=== PATIENT | male | born 1975 | race Caucasian/White ===

== ENCOUNTER 2024-05-25 15:12 | Emergency (ER) | payer BC, SELFPAY ==
[2024-05-25 15:12] VITALS: BP 185/114; PULSE 107; RESP 18; TEMP 36.7; O2SAT 97; BMI 27.1
--- NOTE | 2024-05-25 15:13 | CT_ITS ---
PROCEDURE INFORMATION: Exam: CTA Head With Contrast, Arteriography Exam date and time: 05/25/2024 4:46 PM Age: 48 years old Clinical indication: Injury or trauma; Additional info: Trauma, critical injury suspected TECHNIQUE: Imaging protocol: Computed tomographic angiography of the head with contrast. Exam focused on the arteries. 3D rendering (Not supervised by radiologist): MIP and/or 3D reconstructed images were created by the technologist. Radiation optimization: All CT scans at this facility use at least one of these dose optimization techniques: automated exposure control; mA and/or kV adjustment per patient size (includes targeted exams where dose is matched to clinical indication); or iterative reconstruction. Contrast material: ISO 370; Contrast volume: 80 ml; Contrast route: INTRAVENOUS (IV); COMPARISON: CT HEAD/BRAIN WO CON 05/25/2024 4:07 PM FINDINGS: ANTERIOR CIRCULATION: Right internal carotid artery: Intracranial segment is patent with no significant stenosis. No aneurysm. Right middle cerebral artery: No occlusion or significant stenosis. No aneurysm. Right anterior cerebral artery: No occlusion or significant stenosis. No aneurysm. Left internal carotid artery: Intracranial segment is patent with no significant stenosis. No aneurysm. Left middle cerebral artery: No occlusion or significant stenosis. No aneurysm. Left anterior cerebral artery: No occlusion or significant stenosis. No aneurysm. POSTERIOR CIRCULATION: Right vertebral artery: No occlusion or significant stenosis. No aneurysm. Left vertebral artery: No occlusion or significant stenosis. No aneurysm. Basilar artery: No occlusion or significant stenosis. No aneurysm. Right posterior cerebral artery: No occlusion or significant stenosis. No aneurysm. Left posterior cerebral artery: No occlusion or significant stenosis. No aneurysm. Brain: No definite mass, mass effect, or midline shift. Cerebral ventricles: No ventriculomegaly. Bones/joints: Unremarkable. No acute fracture. Soft tissues: Unremarkable. IMPRESSION: No large vessel stenosis or occlusion.
--- NOTE | 2024-05-25 15:13 | CT_ITS ---
PROCEDURE INFORMATION: Exam: CT Thoracic Spine Without Contrast Exam date and time: 05/25/2024 4:41 PM Age: 48 years old Clinical indication: Injury or trauma; Other: Trampled by cattle; Work related; Blunt trauma (contusions or hematomas); Additional info: Trauma, critical injury suspected TECHNIQUE: Imaging protocol: Computed tomography of the thoracic spine without contrast. Radiation optimization: All CT scans at this facility use at least one of these dose optimization techniques: automated exposure control; mA and/or kV adjustment per patient size (includes targeted exams where dose is matched to clinical indication); or iterative reconstruction. COMPARISON: CT CERVICAL SPINE WO CON 05/25/2024 4:09 PM FINDINGS: Bones/joints: No acute fracture. Normal alignment. No significant disc bulge or herniation. No severe spinal canal stenosis. No significant neural foraminal narrowing. Multilevel mild degenerative disc disease. Soft tissues: Unremarkable. IMPRESSION: Unremarkable CT Spine.
--- NOTE | 2024-05-25 15:13 | XR_ITS ---
PROCEDURE INFORMATION: Exam: XR Right Wrist Exam date and time: 05/25/2024 4:51 PM Age: 48 years old Clinical indication: Injury or trauma; Other: Trampled by cattle; Work related; Blunt trauma (contusions or hematomas); Wrist; Right; Additional info: Cattle trample injury TECHNIQUE: Imaging protocol: Radiologic exam of the right wrist. Views: 3 or more views. COMPARISON: CR XR ELBOW RT MIN 3V 05/25/2024 4:51 PM FINDINGS: Bones/joints: Questionable nondisplaced avulsion fracture adjacent to the posterior carpal bones on the lateral view. No other fracture seen. Soft tissues: Normal. IMPRESSION: Possible small avulsion fracture of the posterior carpal region on the lateral view if symptoms in this region. No other fracture seen.
--- NOTE | 2024-05-25 15:13 | XR_ITS ---
PROCEDURE INFORMATION: Exam: XR Right Elbow Exam date and time: 05/25/2024 4:51 PM Age: 48 years old Clinical indication: Injury or trauma; Other: Cattle trample injury; Blunt trauma (contusions or hematomas); Elbow; Right TECHNIQUE: Imaging protocol: Radiologic exam of the right elbow. Views: 3 or more views. COMPARISON: CR XR WRIST RT MIN 3V 05/25/2024 4:51 PM FINDINGS: Bones/joints: Normal. No acute fracture identified. Soft tissues: Normal. IMPRESSION: No acute findings.
--- NOTE | 2024-05-25 15:13 | CT_ITS ---
PROCEDURE INFORMATION: Exam: CTA Neck With Contrast Exam date and time: 05/25/2024 4:46 PM Age: 48 years old Clinical indication: Injury or trauma; Additional info: Trauma, critical injury suspected TECHNIQUE: Imaging protocol: Computed tomographic angiography of the neck with contrast. Exam focused on the cervical segments of the vasculature. 3D rendering (Not supervised by radiologist): MIP and/or 3D reconstructed images were created by the technologist. Radiation optimization: All CT scans at this facility use at least one of these dose optimization techniques: automated exposure control; mA and/or kV adjustment per patient size (includes targeted exams where dose is matched to clinical indication); or iterative reconstruction. Contrast material: ISO 370; Contrast volume: 80 ml; Contrast route: INTRAVENOUS (IV); COMPARISON: CT CERVICAL SPINE WO CON 05/25/2024 4:09 PM FINDINGS: Right common carotid artery: No stenosis. No dissection or occlusion. Right internal carotid artery: No stenosis of the extracranial segment. No dissection or occlusion. Right external carotid artery: No occlusion or stenosis of the origin. Left common carotid artery: No stenosis. No dissection or occlusion. Left internal carotid artery: No stenosis of the extracranial segment. No dissection or occlusion. Left external carotid artery: No occlusion or stenosis of the origin. Right vertebral artery: No stenosis. No dissection or occlusion. Left vertebral artery: No stenosis. No dissection or occlusion. Soft tissues: Normal. No significant soft tissue swelling. Bones/joints: No acute fracture. IMPRESSION: No stenosis or occlusion. REFERENCES: NASCET CRITERIA. The degree of stenosis in the cervical segment of the internal carotid artery is based on NASCET criteria. Normal is no stenosis. Mild is less than 50% stenosis. Moderate is 50-69% stenosis. Severe is 70% to 99% stenosis. Total occlusion is no detectable patent lumen.
--- NOTE | 2024-05-25 15:13 | CT_ITS ---
PROCEDURE INFORMATION: Exam: CT Head Without Contrast Exam date and time: 05/25/2024 4:07 PM Age: 48 years old Clinical indication: Injury or trauma; Other: Trampled by cattle; Work related; Blunt trauma (contusions or hematomas); Additional info: Trauma, critical injury suspected TECHNIQUE: Imaging protocol: Computed tomography of the head without contrast. Radiation optimization: All CT scans at this facility use at least one of these dose optimization techniques: automated exposure control; mA and/or kV adjustment per patient size (includes targeted exams where dose is matched to clinical indication); or iterative reconstruction. COMPARISON: No relevant prior studies available. FINDINGS: Brain: Normal. No hemorrhage. Unremarkable white matter. No mass effect. Cerebral ventricles: No ventriculomegaly. Paranasal sinuses: Visualized sinuses are unremarkable. No fluid levels. Mastoid air cells: Visualized mastoid air cells are well aerated. Bones: Unremarkable. No acute fracture. Soft tissues: Unremarkable. IMPRESSION: No acute intracranial abnormality.
--- NOTE | 2024-05-25 15:13 | CT_ITS ---
PROCEDURE INFORMATION: Exam: CT Lumbar Spine Without Contrast Exam date and time: 05/25/2024 4:43 PM Age: 48 years old Clinical indication: Injury or trauma; Additional info: Trauma, critical injury suspected TECHNIQUE: Imaging protocol: Computed tomography of the lumbar spine without contrast. Radiation optimization: All CT scans at this facility use at least one of these dose optimization techniques: automated exposure control; mA and/or kV adjustment per patient size (includes targeted exams where dose is matched to clinical indication); or iterative reconstruction. COMPARISON: CT THORACIC SPINE WO CON 05/25/2024 4:41 PM FINDINGS: Bones/joints: Mild multilevel degenerative spurring. Vertebral body heights are intact. No acute fracture. Incidental bilateral L5 spondylolysis without associated spondylolisthesis. Kidneys and ureters: Incidental bilateral nonobstructing kidney stones. Soft tissues: Unremarkable. IMPRESSION: 1. No acute abnormality. 2. Incidental L5 spondylolysis. 3. Nonobstructing kidney stones.
--- NOTE | 2024-05-25 15:13 | CT_ITS ---
PROCEDURE INFORMATION: Exam: CT Cervical Spine Without Contrast Exam date and time: 05/25/2024 4:09 PM Age: 48 years old Clinical indication: Injury or trauma; Other: Trampled by cattle; Work related; Blunt trauma; Additional info: Trauma, critical injury suspected TECHNIQUE: Imaging protocol: Computed tomography of the cervical spine without contrast. Radiation optimization: All CT scans at this facility use at least one of these dose optimization techniques: automated exposure control; mA and/or kV adjustment per patient size (includes targeted exams where dose is matched to clinical indication); or iterative reconstruction. COMPARISON: CT HEAD/BRAIN WO CON 05/25/2024 4:07 PM FINDINGS: Bones/joints: No acute fracture. Normal alignment. C2-C3: No significant disc bulge or herniation. No severe spinal canal stenosis. No significant neural foraminal narrowing. C3-C4: No significant disc bulge or herniation. No severe spinal canal stenosis. No significant neural foraminal narrowing. C4-C5: No significant disc bulge or herniation. No severe spinal canal stenosis. No significant neural foraminal narrowing. C5-C6: No significant disc bulge or herniation. No severe spinal canal stenosis. No significant neural foraminal narrowing. C6-C7: No significant disc bulge or herniation. No severe spinal canal stenosis. No significant neural foraminal narrowing. C7-T1: No significant disc bulge or herniation. No severe spinal canal stenosis. No significant neural foraminal narrowing. Lungs: Lung apices are normal. Soft tissues: Unremarkable. IMPRESSION: No acute findings.
--- NOTE | 2024-05-25 15:13 | CT_ITS ---
PROCEDURE INFORMATION: Exam: CTA Chest With Contrast Exam date and time: 05/25/2024 4:51 PM Age: 48 years old Clinical indication: Injury or trauma; Additional info: Trauma, critical injury suspected Other: Trampled by cattle; Work related; Blunt trauma (contusions or hematomas); TECHNIQUE: Imaging protocol: Computed tomographic angiography of the chest with contrast. Exam focused on the arteries. 3D rendering (Not supervised by radiologist): MIP and/or 3D reconstructed images were created by the technologist. Radiation optimization: All CT scans at this facility use at least one of these dose optimization techniques: automated exposure control; mA and/or kV adjustment per patient size (includes targeted exams where dose is matched to clinical indication); or iterative reconstruction. Contrast material: ISO 370; Contrast volume: 80 ml; Contrast route: INTRAVENOUS (IV); COMPARISON: CT ANGIO ABDOMEN PELVIS 05/25/2024 4:51 PM FINDINGS: Pulmonary arteries: Normal. No pulmonary emboli. Aorta: Unremarkable. No aortic aneurysm. No aortic dissection. Lungs: Unremarkable. No consolidation. No masses. Pleural spaces: Unremarkable. No pneumothorax. No pleural effusion. Heart: Unremarkable. No cardiomegaly. No pericardial effusion. Lymph nodes: Unremarkable. No enlarged lymph nodes. Bones/joints: Unremarkable. No acute fracture. Soft tissues: Unremarkable. IMPRESSION: No acute findings.
--- NOTE | 2024-05-25 15:13 | CT_ITS ---
PROCEDURE INFORMATION: Exam: CTA Abdomen and Pelvis With Contrast Exam date and time: 05/25/2024 4:51 PM Age: 48 years old Clinical indication: Injury or trauma; Additional info: Trauma, critical injury suspected. Other: Trampled by cattle; Work related; Blunt trauma (contusions or hematomas); TECHNIQUE: Imaging protocol: Computed tomographic angiography of the abdomen and pelvis with contrast. Exam focused on the arteries. 3D rendering (Not supervised by radiologist): MIP and/or 3D reconstructed images were created by the technologist. Radiation optimization: All CT scans at this facility use at least one of these dose optimization techniques: automated exposure control; mA and/or kV adjustment per patient size (includes targeted exams where dose is matched to clinical indication); or iterative reconstruction. Contrast material: ISO 370; Contrast volume: 80 ml; Contrast route: INTRAVENOUS (IV); COMPARISON: CT ANGIO CHEST 05/25/2024 4:51 PM FINDINGS: Aorta: No aortic aneurysm. No aortic dissection. Celiac trunk and mesenteric arteries: No occlusion or significant stenosis. Renal arteries: No occlusion or significant stenosis. Right iliac arteries: See Bones/joints finding. Left iliac arteries: No occlusion or significant stenosis. Liver: Fatty liver changes with associated hepatomegaly measuring 18 cm. Liver otherwise unremarkable. Gallbladder and biliary ducts: Unremarkable. No calcified stones. No ductal dilation. Pancreas: Unremarkable. No mass. No ductal dilation. Spleen: Unremarkable. No splenomegaly. Adrenal glands: Unremarkable. No mass. Kidneys and ureters: Incidental 14 mm low-density lesion in the parapelvic region of the mid left kidney with a density of 48 centered on axial image 131 of series 5. Kidneys and ureters otherwise unremarkable with no obstructing stones or uropathy. Stomach and bowel: Unremarkable. No obstruction. No mucosal thickening. Appendix: Appendix is normal. No evidence of appendicitis. Intraperitoneal space: Unremarkable. No free air. No significant fluid collection. Lymph nodes: Unremarkable. No enlarged lymph nodes. Urinary bladder: See Bones/joints finding. Reproductive: Unremarkable as visualized. Bones/joints: Asymmetric bandlike soft tissue density thickening noted in the anterior lower pelvis region centered between the distal external iliac vessels and anterior right side of the bladder measuring 3.2 x 0.9 x 3.6 cm centered on axial image 236 of series 5 and coronal image 37 of series 4. Associated mild local mass effect with slight indentation of the adjacent bladder. This finding also located slightly posteromedial to the right inguinal region. Soft tissues: See Bones/joints finding. IMPRESSION: 1. No definite acute abnormality. 2. Incidental bandlike soft tissue density process in the right anterior lower pelvis just above the symphysis pubis posterior and medial to the right inguinal region and adjacent to the anterior right side of the bladder with mild mass effect on the right side of the bladder. This is of uncertain etiology or significance. This finding might be residual of prior surgery. If no history of previous surgery than the finding might be residual of prior trauma or inflammation or potentially related to patient's current trauma if symptoms in this area. 3. Incidental 14 mm indeterminate low-density lesion in the left kidney with density somewhat greater than fluid. This might be a hyperdense cyst and the increased density might even be artifactual from the adjacent enhancing kidney and collecting systems. However, other process cannot be excluded. Advise further assessment with nonemergent MRI or CT of the kidneys with and without contrast. MR prefered for lesions less than 15 mm. Alternatively a nonemergent ultrasound of the kidneys might be performed initially. 4. Additional nonemergent findings as above.
--- NOTE | 2024-05-25 15:27 | ED_ITS ---
Discharge Plan Disposition Patient Disposition: Home, Self-Care Prescriptions Prescriptions: New ibuprofen 800 mg tablet 800 mg PO TID PRN (Reason: pain) 7 Days Qty: 20 0RF hydrocodone-acetaminophen 5-325 mg tablet 1 tab PO Q6H PRN (Reason: pain) 3 Days Qty: 12 0RF cyclobenzaprine 5 mg tablet 5 mg PO TID PRN (Reason: muscle spasm) 5 Days Qty: 15 0RF Referrals Follow up/Referrals: Provider,Referral, MD [Referring] - See instructions Activity Restrictions/Add. Instructions Additional Instructions/Restrictions: No definitive traumatic injuries aside from significant superficial soft tissue crush related injuries. However no bony related injuries or organ injuries etc. Your laceration on your face was repaired with absorbable sutures no further management from a provider standpoint is needed unless you see spreading redness or pus coming from these wounds. You do not need to have his sutures removed. Please return with any significant worsening of your symptoms. As discussed given the extensive amount of soft tissue damage you have your go to be very sore the next few days please take your ibuprofen and your muscle relaxer and your opiate only as needed for breakthrough pain. Clinical Impressions Clinical Impression: Victim of trampling from animal, Laceration of face, Contusion of elbow, right, Right wrist sprain Print Language Print Language: Lithuanian Discharge ED Provider: Leisa Martinez General Adult HPI General Chief complaint: PAIN Stated complaint: trampled by cows Time Seen by Provider: 05/25/24 15:13 Mode of Arrival: Ambulatory Source of Information: Patient Limitations: No Limitations Description of Symptoms (Recalled from ER Triage Doc. by RN): PT PRESENTS TO THE ER FOR GETTING TRAMPLED BY A HERD OF CATTLE, STATES THEY WEIGH ABOUT 800LBS, STATES THERE WAS ABOUT 25 OF THEM BUT NOT ALL OF THEM KICKED HIM, DIDN'T LOSE CONSCIOUSNESS BUT REPORTS DIZZINESS, STATES IT HAPPENED ABOUT 45 MINUTES PRIOR TO ARRIVAL, REPORTS PAIN IN L SHOULDER AND R ARM RATING IT 8/10, LAC NOTED TO L SIDE OF FACE, DOESN'T TAKE ANY MEDS, WALKED IN History of Present Illness HPI narrative: Patient is a 48-year-old male with no significant past medical history presents today after being trampled by 25 head of cattle each weighing 800 pounds. Patient complains of headache right elbow right wrist left shoulder pain. Denies being on any anticoagulation or antiplatelet agents. Was able to ambulate and to the emergency department having significant difficulty. Related Data Previous Rx's ?Medication ?Instructions ?Recorded cyclobenzaprine 5 mg tablet 5 mg PO TID PRN muscle spasm 5 05/25/24 days #15 tabs hydrocodone 5 mg-acetaminophen 325 1 tab PO Q6H PRN pain 3 days #12 05/25/24 mg tablet tabs ibuprofen 800 mg tablet 800 mg PO TID PRN pain 7 days #20 05/25/24 tabs Allergies Allergy/AdvReac Type Severity Reaction Status Date / Time No Known Allergies Allergy Verified 05/25/24 15:28 [facility] Disclaimer: The information contained in this section may have been updated after the patient was seen, as this information can be updated by other users. Social History Smoking Status: Never smoker alcohol intake: never current occupational status: other Travel in the last 8 weeks: None ROS Obtained: Yes All systems reviewed & no additional complaints except as documented Physical Exam General General appearance: alert and in no apparent distress Head Head exam: other (2-1/2 cm vertically oriented laceration just lateral to the left eye in the temporal region no evidence of [place] raccoon eyes or depressible fracture) Neck Neck exam: Absent tenderness Respiratory Respiratory exam: Present normal lung sounds bilaterally; Absent respiratory distress Cardiovascular Cardiovascular exam: Present regular rate and normal rhythm Abdominal Exam Abdominal exam: Present soft and distention Extremities Exam Extremities exam: Present other (Ecchymosis and swelling over the right elbow with limited range of motion as well as the right wrist and left shoulder neurovasc intact distal to injury) Neurological Exam Neurological exam: Present alert and oriented X3 Medical Decision Making Medical Records Screening: Per USPSTF and CDC recommendations, given the prevalence of disease in our region, it is our hospital?s policy to screen for HIV and viral Hepatitis for all patients aged 18 and over and those with ongoing risk factors. Manjinder Inquiry Pt receiving controlled substance: No Vital Signs: 05/25/24 15:12 05/25/24 15:30 05/25/24 16:00 Temperature 98.1 F Temperature Source Oral Pulse Rate 81 82 Pulse Rate [Left Radial] 107 H Respiratory Rate 18 18 Blood Pressure 156/108 H 158/97 H Blood Pressure [Right Arm] 185/114 H Blood Pressure Mean 134 Blood Pressure Mean [Right Arm] 137 Blood Pressure Source [Right Arm] Automatic Cuff Blood Pressure Position [Right Arm] Sitting 02 Sat by Pulse Oximetry 97 98 96 Oxygen Delivery Method Room Air Room Air 05/25/24 17:30 05/25/24 18:00 Temperature Temperature Source Pulse Rate 74 75 Pulse Rate [Left Radial] Respiratory Rate 18 Blood Pressure 161/97 H 159/106 H Blood Pressure [Right Arm] Blood Pressure Mean 118 Blood Pressure Mean [Right Arm] Blood Pressure Source [Right Arm] Blood Pressure Position [Right Arm] 02 Sat by Pulse Oximetry 96 98 Oxygen Delivery Method Room Air Lab Data Lab results reviewed: Yes I reviewed the patient's lab results. Lab Results 05/25/24 15:15: WBC 6.7, RBC 5.65, Hgb 17.1, Hct 51.3, MCV 90.7, MCH 30.3, MCHC 33.4, RDW 13.4, Plt Count 233, MPV 8.3, Neut % (Auto) 66.5, Lymph % (Auto) 23.5, [place] % (Auto) 5.4, Eos % (Auto) 0.8, Baso % (Auto) 3.9 H, Neut # (Auto) 4.4, Lymph # (Auto) 1.6, Sw[place] # (Auto) 0.4, Eos # (Auto) 0.1, Baso # (Auto) 0.3 H, PT 10.8, INR 0.96, APTT 23.2, Sodium 140, Potassium 4.0, Chloride 103, Carbon Dioxide 29, Anion Gap 12.0, BUN 17, Creatinine 1.30 H, Estimated Creat Clear 87, Estimated GFR 58 L, Est GFR ( Amer) 71, Glucose 126 H, Calcium 9.5, Total Bilirubin 1.1, AST 70 H, ALT 109 H, Alkaline Phosphatase 108, Total Protein 8.0, Albumin 4.7, Globulin 3.3 H, Albumin/Globulin Ratio 1.4 05/25/24 16:04: Urine Color Yellow, Urine Appearance Clear, Urine pH 6.0, Ur Specific [place] >= 1.030, Urine Protein Negative, Urine Glucose (UA) Negative, Urine Ketones Negative, Urine Blood Negative, Urine Nitrate Negative, Urine Bilirubin Negative, Urine Urobilinogen 0.2, Ur Leukocyte Esterase Negative, Urine RBC None, Urine WBC 3-5 05/25/24 15:15 05/25/24 15:15 Orders (Tests/Meds): ED MEDICATIONS Generic Name Dose Route Start Last Admin Trade Name Keaton PRN Reason Stop Dose Admin Sodium Chloride 10 ml 05/25/24 17:01 05/25/24 17:02 Sodium Chloride 0.9% 10ml Syr (Rad Only) IV 06/24/24 17:00 10 ml NEEDED PRN Administration Maintain IV Site Discontinued Medications Generic Name Dose Route Start Last Admin Trade Name Keaton PRN Reason Stop Dose Admin Sodium Chloride 1,000 mls @ 999 mls/hr 05/25/24 15:15 05/25/24 15:49 Sod Chlor 0.9% 1000ml Bag IV 05/25/24 16:15 999 mls/hr .Q1H1M JONI Administration Iopamidol 160 ml 05/25/24 17:01 05/25/24 17:02 Iopamidol-370 (76%);100ml Bottle IV 05/25/24 17:02 160 ml ONCE ONE Administration Morphine Sulfate 4 mg 05/25/24 15:13 05/25/24 15:49 Morphine 4mg/Ml Syringe IV 05/25/24 15:14 4 mg ONCE ONE Administration Ondansetron HCl 4 mg 05/25/24 15:13 05/25/24 15:48 Ondansetron 4mg/2ml Vial IV 05/25/24 15:14 4 mg ONCE ONE Administration Sodium Chloride 100 ml 05/25/24 17:01 05/25/24 17:02 0.9 % Sodium Chloride 50 Ml Vial IV 05/25/24 17:02 100 ml ONCE ONE Administration Tetanus/Reduced Diphtheria/Acell Pertussis 0.5 ml 05/25/24 15:13 05/25/24 15:47 Tet/Diphth/Pert-Adult 0.5ml Syringe IM 05/25/24 15:14 0.5 ml .ONCE ONE Administration ORDERS Category Date Time Status CT angio abdomen pelvis Stat Cat Scan 05/25/24 15:[address] angio chest - dissection Stat Cat Scan 05/25/24 15:[address] angio head Stat Cat Scan 05/25/24 15:[address] angio neck Stat Cat Scan 05/25/24 15:[address] cervical spine wo con Stat Cat Scan 05/25/24 15:[address] head/brain wo con Stat Cat Scan 05/25/24 15:[address] lumbar spine wo con Stat Cat Scan 05/25/24 15:[address] thoracic spine wo con Stat Cat Scan 05/25/24 15:13 Completed Elbow XR right minimum 3 views [XR elbow RT min 3V] Exams 05/25/24 15:13 Completed Stat Wrist XR right minimum 3 views [XR wrist RT min 3V] Exams 05/25/24 15:13 Completed Stat CBC w/Auto Diff [Complete Blood Count Auto Diff] Stat Lab 05/25/24 15:15 Completed CMP [Comprehensive Metabolic Panel] Stat Lab 05/25/24 15:15 Completed PT/PTT Stat Lab 05/25/24 15:15 Completed UA [Urinalysis and Microscopic] Stat Lab 05/25/24 16:04 Completed Medical Decision Narrative: Patient is a 48-year-old with significant traumatic mechanism with 800 pound cattle trampling him. He looks remarkably well for the mechanism of injury however given this mechanism will get full trauma scans. He is hemodynamically stable holding off on doing an E-FAST at the moment. Will obtain plain films of his right elbow and wrist as well. He will require laceration repair of the laceration to his head. Will reassess after this initial workup is complete. Reassessment 6:[address] scans performed which I personally interpreted which showed no acute traumatic abnormalities x-rays were also performed which I personally interpreted which show no significant abnormalities. Radiology read consistent with this. He did have a dorsal lucency on the right hand which was a questionable fracture of he had no tenderness there also had some hyperdense tissue in his right groin which is consistent with inguinal hernia repair that he had in the past as well as had a lucency of his kidney which she has been followed by urologist for and is aware of. LFTs were mildly elevated but he has no tenderness in right upper quadrant or epigastric area. This is nonspecific. I am not concerned about a hepatobiliary injury at the moment. Patient has significant soreness across his back and throughout his whole body which I suspect will continue to worsen with this crush injury. Ibuprofen Flexeril and [place] have been prescribed for his pain. Return precautions emphasized. Laceration wound management discussed patient was discharged improved stable condition. Procedures Laceration Laceration 1: Site: face Side (If applicable): left Size (cm): 3 Description: irregular Local Anesthetic: lidocaine 1% and with epi Amount of anesthesia used (mL): 5 Pre-repair: irrigated extensively Skin layer closed with: other (Fast gut) Size (cm): 5-0 Number of sutures: 6 Technique: simple, interrupted Subcutaneous layer closed with: vicryl Size: 4-0 Number of sutures: 2 Technique: simple, interrupted Critical Care Critical Care Time Critical Care Time: Yes Attestation: On 05/25/24, the high probability of a clinically significant, sudden or life threatening deterioration of the following system(s) required my full and direct attention, intervention and personal management. The time I documented below is in addition to time spent performing reported procedures but includes the following listed in this critical care notation. Total Time Total Critical Care Time: 35
[2024-05-25 15:30] VITALS: BP 156/108; PULSE 81; O2SAT 98
[2024-05-25 15:37] LABS: Basophils # 0.3 K/mm3 (0-0.2); Basophils % 3.9 % (0.1-2.0); Eosinophils # 0.1 K/mm3 (0.0-0.4); Eosinophils % 0.8 % (0.1-12.0); Hematocrit 51.3 % (42.0-52.0); Hemoglobin 17.1 g/dL (14.1-18.0); Lymphocytes # 1.6 K/mm3 (0.7-4.5); Lymphocytes % 23.5 % (10-50); Mean Corpuscular HGB Conc 33.4 g/dL (31.8-35.4); Mean Corpuscular Hemoglobin 30.3 pg (27.0-31.2); Mean Corpuscular Volume 90.7 fl (80-94); Mean Platelet Volume 8.3 fl (7.4-10.4); Monocytes # 0.4 K/mm3 (0.1-1.0); Monocytes % 5.4 % (1.7-9.3); Neutrophils # 4.4 K/mm3 (1.8-7.8); Neutrophils % 66.5 % (37.0-80.0); Platelet Count 233 K/mm3 (142-424); Red Blood Count 5.65 M/mm3 (4.60-6.20); Red Cell Distribution Width 13.4 % (11.5-17.5); White Blood Count 6.7 K/mm3 (4.8-10.8)
[2024-05-25] MEDS: TET/DIPHTH/PERT-ADULT 0.5ML SYRINGE 0.5 ML IM (15:47)
[2024-05-25] MEDS: ONDANSETRON 4MG/2ML VIAL 4 MG IV (15:48)
[2024-05-25] MEDS: MORPHINE 4MG/ML SYRINGE 4 MG IV (15:49)
[2024-05-25] MEDS: 0.9 % SODIUM CHLORIDE 1000ML 1,000 ML 999 ML IV (15:49)
[2024-05-25 15:59] LABS: Activated Partial Thrombo Time 23.2 seconds (22.8-30.6); Albumin Level 4.7 g/dl (3.5-5.0); Chloride 103 mmol/L (98-107); INR 0.96 (0.9-1.1); Prothrombin Time 10.8 seconds (10.1-12.5)
[2024-05-25 16:00] VITALS: BP 158/97; PULSE 82; RESP 18; O2SAT 96
[2024-05-25 16:00] LABS: Sodium 140 mmol/L (136-145)
[2024-05-25 16:02] LABS: Alanine Aminotransferase 109 U/L (12-78); Aspartate Amino Transferase 70 U/L (17-59); Blood Urea Nitrogen 17 mg/dl (9-20); Creatinine Clearance Estimated 87 mL/min (50-200); Estimated Glomerular Filt Rate 58 ml/min (>60); GFR (African American) 71 ML/MIN (>60)
[2024-05-25 16:03] LABS: Albumin/Globulin Ratio 1.4 (1.1-1.8); Alkaline Phosphatase 108 U/L (38-126); Bilirubin,Total 1.1 mg/dl (0.2-1.3); Calcium 9.5 mg/dl (8.4-10.2); Carbon Dioxide 29 mmol/L (22.0-30.0); Globulin 3.3 g/dL (1.3-3.2); Glucose 126 mg/dl (74-100)
--- NOTE | 2024-05-25 16:06 | PC.NURSE ---
PT GONE TO CT
[2024-05-25 16:10] LABS: Microscopic, Urine URINE MICROSCOPIC (MICROSCOPIC)
[2024-05-25 16:20] LABS: Appearance,Urine CLEAR (Clear); Bilirubin,Urine Negative (Negative); Blood, Urine Negative (Negative); Color,Urine YELLOW (Yellow); Glucose,Urine (UA) Negative (Negative); Ketones,Urine Negative (Negative); Leukocyte Esterase,Urine Negative (Negative); Nitrate,Urine Negative (Negative); Protein,Urine Negative (Negative); Specific Gravity, Urine >= 1.030 (1.005-1.030); Urobilinogen,Urine 0.2 EU/dl (0.2)
[2024-05-25] MEDS: IOPAMIDOL-370 (76%);100ML BOTTLE 160 ML IV (17:02)
[2024-05-25] MEDS: SODIUM CHLORIDE 0.9% 10ML SYR (RAD ONLY) 10 ML IV (17:02)
[2024-05-25] MEDS: 0.9 % SODIUM CHLORIDE 50 ML VIAL 100 ML IV (17:02)
[2024-05-25 17:30] VITALS: BP 161/97; PULSE 74; RESP 18; O2SAT 96
--- NOTE | 2024-05-25 17:57 | PC.NURSE ---
ER AT BEDSIDE
[2024-05-25 18:00] VITALS: BP 159/106; PULSE 75; O2SAT 98
[2024-05-25 18:21] VITALS: BP 173/106; PULSE 85; RESP 18; TEMP 36.6; O2SAT 97
== END 2024-05-25 18:22 | disposition home or self-care (01) ==
PROVIDERS: Emergency Provider Student in an Organized Health Care Education/Training Program; PCP Internal Medicine
DX: S63.501A Unspecified sprain of right wrist, initial encounter (principal); S50.01XA Contusion of right elbow, initial encounter; S01.81XA Laceration without foreign body of other part of head, initial encounter; R42 Dizziness and giddiness; M25.512 Pain in left shoulder; M79.601 Pain in right arm; R51.9 Headache, unspecified; M25.521 Pain in right elbow; M25.531 Pain in right wrist; Z23 Encounter for immunization; W55.22XA Struck by cow, initial encounter; Y93.89 Activity, other specified; Y92.89 Other specified places as the place of occurrence of the external cause
CPT/HCPCS: 70450; 70496; 70498; 71275; 72125; 72128; 72131; 73080; 73110; 74174; 80053; 81001; 85025; 85610; 85730; 90471; 90715; 96361; 96374; 96375; 99291; J2270; J2405; J7030; Q9967